=== PATIENT | female | born 2000 | race Two or more races ===

== ENCOUNTER 2020-03-10 12:04 | Outpatient (CLI) | payer OTHER | END 2020-03-10 13:43 | disposition home or self-care (01) | LOC: LAB 12:04 | PROVIDERS: ATTEND Obstetrics & Gynecology | DX: Z34.82 Encounter for supervision of other normal pregnancy, second trimester (principal) ==

== ENCOUNTER → 2020-04-27 | Outpatient (CLI) | payer OTHER | END | disposition home or self-care (01) | LOC: PRENATAL 10:37 | PROVIDERS: ATTEND Obstetrics & Gynecology Maternal & Fetal Medicine | DX: O35.0XX1 Maternal care for (suspected) central nervous system malformation in fetus, fetus 1 (principal); O98.512 Other viral diseases complicating pregnancy, second trimester; O36.51 Maternal care for known or suspected placental insufficiency; Z36.89 Encounter for other specified antenatal screening; Z3A.23 23 weeks gestation of pregnancy ==

== ENCOUNTER 2020-05-22 11:40 | Outpatient (CLI) | payer OTHER | END 2020-05-22 12:18 | disposition home or self-care (01) | LOC: LAB 11:40 | PROVIDERS: ATTEND Obstetrics & Gynecology | DX: Z34.82 Encounter for supervision of other normal pregnancy, second trimester (principal) ==

== ENCOUNTER → 2020-06-14 | Outpatient (CLI) | payer OTHER | END | disposition home or self-care (01) | LOC: PRENATAL 11:05 | PROVIDERS: ATTEND Obstetrics & Gynecology Maternal & Fetal Medicine | DX: O26.843 Uterine size-date discrepancy, third trimester (principal); Z36.89 Encounter for other specified antenatal screening; Z3A.30 30 weeks gestation of pregnancy ==

== ENCOUNTER → 2020-07-21 13:38 | Outpatient (CLI) | payer OTHER | END | disposition home or self-care (01) | LOC: LAB 13:38 | PROVIDERS: ATTEND Obstetrics & Gynecology | DX: Z34.83 Encounter for supervision of other normal pregnancy, third trimester (principal) ==

== ENCOUNTER 2022-04-15 12:11 | Emergency (ER) | payer OTHER ==
[~2022-04-15] VITALS: Ht 157.5 cm; Wt 68.0 kg
== END 2022-04-15 15:40 | disposition home or self-care (01) ==
LOC: ER 12:11
DX: U07.1 COVID-19 (principal)

== ENCOUNTER 2023-02-07 16:14 | Outpatient (CLI) | payer OTHER | END 2023-02-07 17:56 | disposition home or self-care (01) | LOC: PRENATAL 16:14 | PROVIDERS: ATTEND Obstetrics & Gynecology Maternal & Fetal Medicine | DX: O35.9XX0 Maternal care for (suspected) fetal abnormality and damage, unspecified, not applicable or unspecified (principal); O35.3XX0 Maternal care for (suspected) damage to fetus from viral disease in mother, not applicable or unspecified; Z3A.29 29 weeks gestation of pregnancy ==

== ENCOUNTER 2023-03-14 09:05 | Outpatient (CLI) | payer OTHER | END 2023-03-14 10:06 | disposition home or self-care (01) | LOC: PRENATAL 09:05 | PROVIDERS: ATTEND Obstetrics & Gynecology Maternal & Fetal Medicine | DX: O26.849 Uterine size-date discrepancy, unspecified trimester (principal); O36.8199 Decreased fetal movements, unspecified trimester, other fetus; O36.5990 Maternal care for other known or suspected poor fetal growth, unspecified trimester, not applicable or unspecified; Z3A.34 34 weeks gestation of pregnancy; O34.219 Maternal care for unspecified type scar from previous cesarean delivery ==

== ENCOUNTER 2023-04-02 11:07 | Outpatient (CLI) | payer OTHER | END 2023-04-02 12:36 | disposition home or self-care (01) | LOC: PRENATAL 11:07 | PROVIDERS: ATTEND Obstetrics & Gynecology Maternal & Fetal Medicine | DX: O26.849 Uterine size-date discrepancy, unspecified trimester (principal); O36.8199 Decreased fetal movements, unspecified trimester, other fetus; O34.219 Maternal care for unspecified type scar from previous cesarean delivery; O36.5990 Maternal care for other known or suspected poor fetal growth, unspecified trimester, not applicable or unspecified; Z3A.37 37 weeks gestation of pregnancy ==

== ENCOUNTER 2023-04-11 15:49 | Inpatient (IN) | payer OTHER ==
[~2023-04-11] VITALS: Ht 157.5 cm; Wt 71.7 kg
[2023-04-12] MEDS ORDERED: PRENAT PO (13:13)
[2023-04-13] MEDS ORDERED: PRENATAL TABLE1 EAC1 PO (07:15)
== END 2023-04-18 18:36 | disposition home or self-care (01) | DRG 788 ==
LOC: LDR 04-15 00:54 → OB/GYN 04-15 09:52 → LDR 04-16 09:30 → OB/GYN 04-18 18:36
PROVIDERS: ADMIT Obstetrics & Gynecology; ATTEND Obstetrics & Gynecology
PROC: 4A1HXCZ Monitoring of Products of Conception, Cardiac Rate, External Approach (ICD-10-PCS; 2023-04-15)
PROC: 10D00Z1 Extraction of Products of Conception, Low, Open Approach (ICD-10-PCS; principal; 2023-04-15 07:00)
DX: O34.211 Maternal care for low transverse scar from previous cesarean delivery (principal); Z3A.39 39 weeks gestation of pregnancy; Z37.0 Single live birth; Z20.822 Contact with and (suspected) exposure to COVID-19

== ENCOUNTER 2023-04-13 07:07 | Outpatient (CLI) | payer OTHER ==
[~2023-04-13 07:07] MED LIST: PRENAT PO
[2023-04-13] MEDS ORDERED: PRENATAL TABLE1 EAC1 PO (07:15)
== END 2023-04-13 10:18 | disposition home or self-care (01) ==
LOC: OBS/DEL 07:07
PROVIDERS: ATTEND Obstetrics & Gynecology
DX: O26.893 Other specified pregnancy related conditions, third trimester (principal); Z3A.39 39 weeks gestation of pregnancy